=== PATIENT | female | born 1945 | race Caucasian/White ===

== ENCOUNTER → 2016-12-13 | Outpatient (CLI) | payer OTHER ==
--- NOTE | 2016-12-13 17:37 | MA ---
Screening Digital Mammogram with Digital Breast Tomosynthesis Clinical Indications: Routine screening. Technique: Standard cephalocaudal projections are obtained. Digital breast tomosynthesis was perform ed in the MLO projection with reconstruction at 1.0 mm slice thickness and composite MLO views recons tructed. This examination is processed by the CAD computer aided detection system. Comparison: December 04, 2015; November 25, 2014; and studies dating back to August 24, 2008. Breast density: C; The breasts are heterogeneously dense, which may obscure small masses. Findings: CAD was reviewed. There are no new masses, new clusters of microcalcifications, or significant axillary lymphadenopathy . Impression: Negative mammogram. BI-RADS 1. Recommendation: Routine screening mammogram is recommended in one year. Dense mammographic pattern limits the sensitivity of mammography in this patient. If there is a clini romeo palpable abnormality, recommend additional imaging with ultrasound if clinically indicated. [facility] will send a result letter to the patient. Negative mammography should not preclude additional workup of a clinically suspicious finding. The patient's information is entered into a reminder system with a target due date for her next mammo gram.
== END ==
LOC: FIMAGING 13:49
DX: Z12.31 Encounter for screening mammogram for malignant neoplasm of breast (principal)
CPT/HCPCS: G0202

== ENCOUNTER → 2017-04-07 | Outpatient (CLI) | payer OTHER | LOC: FIMAGING 18:36 | PROVIDERS: ATTEND Family Medicine | DX: S42.021A Displaced fracture of shaft of right clavicle, initial encounter for closed fracture (principal) ==

== ENCOUNTER → 2017-04-11 | Outpatient (CLI) | payer OTHER | LOC: BRMIMAGING 08:34 | PROVIDERS: ATTEND Family Medicine | DX: Z13.820 Encounter for screening for osteoporosis (principal); M85.80 Other specified disorders of bone density and structure, unspecified site ==

== ENCOUNTER → 2017-12-22 | Outpatient (CLI) | payer OTHER | LOC: FIMAGING 08:17 | PROVIDERS: ATTEND Family Medicine | DX: Z12.31 Encounter for screening mammogram for malignant neoplasm of breast (principal) ==

== ENCOUNTER → 2018-08-06 | Outpatient (CLI) | payer OTHER ==
[~2018-08-06] MED LIST: IOPAMIDOL (ISOVUE-300) 100 ML BTL ONE
== END ==
LOC: FIMAGING 11:52
PROVIDERS: ATTEND Family Medicine
DX: R93.5 Abnormal findings on diagnostic imaging of other abdominal regions, including retroperitoneum (principal); R74.0 Nonspecific elevation of levels of transaminase and lactic acid dehydrogenase [LDH]; G96.19 Other disorders of meninges, not elsewhere classified; Z80.0 Family history of malignant neoplasm of digestive organs
CPT/HCPCS: 74177; Q9967

== ENCOUNTER → 2018-08-06 | Outpatient (CLI) | payer OTHER | LOC: FIMAGING 09:31 | PROVIDERS: ATTEND Family Medicine | DX: R10.11 Right upper quadrant pain (principal); R94.5 Abnormal results of liver function studies; R93.5 Abnormal findings on diagnostic imaging of other abdominal regions, including retroperitoneum; K82.9 Disease of gallbladder, unspecified ==

== ENCOUNTER 2018-08-10 13:29 | Day surgery (SDC) | payer OTHER ==
[2018-08-10] MEDS ORDERED: LR 1,000 ML IV ONE (13:55)
[2018-08-10] MEDS ORDERED: LIDOCAINE 1% 2 ML INJ ID PRN (13:55)
[2018-08-10] MEDS ORDERED: IOTHALAMATE MEG (CONRAY) 50 ML VIAL IV ONE (15:03)
[2018-08-10] MEDS ORDERED: GLUCAGON HCL 1 MG VIAL ONE (15:03)
[2018-08-10] MEDS ORDERED: INDOMETHACIN 50 MG SUPP PR PRN (15:16)
[2018-08-10] MEDS ORDERED: fentaNYL 100 MCG/2 ML INJ ONE (15:16)
[2018-08-10] MEDS ORDERED: PROPOFOL 200 MG/20 ML VIAL ONE (15:16)
--- NOTE | 2018-08-10 15:16 | PDGENHP ---
History & Physical Chief Complaint: abnl imaging History of Present Illness: 73 year old presents for abnl imaging. 4cm panc mass. + RUQ abdominal pain. Increased LFTs Pertinent Past, Social, Family History: See anesthesiology notes for details. Relevant Physical Exam: HEENT: anicteric. Cv: RRR +s1s2. Lungs: CTAB. Abd: soft, nt, + BS Cardiorespiratory Assessment: ASA 2
[2018-08-10] MEDS ORDERED: DEXAMETHASONE 4 MG/ML VIAL ONE (15:17)
[2018-08-10] MEDS ORDERED: SUCCINYLCHOLINE CHLORIDE 200 MG/10 ML SYR IVP ONE (15:17)
[2018-08-10] MEDS ORDERED: ROCURONIUM 50 MG/5 ML VIAL ONE (15:17)
[2018-08-10] MEDS ORDERED: LIDOCAINE 2% 2 ML INJ ONE ×3 (15:18→15:19)
--- NOTE | 2018-08-10 15:20 | PDANEPAE ---
ANE History of Present Illness ercp ANE Past Medical History - Cardiovascular History Hx Hypertension: No Hx Arrhythmias: No Hx Chest Pain: No Hx Coronary Artery / Peripheral Vascular Disease: No Hx CHF / Valvular Disease: No Hx Palpitations: No - Pulmonary History Hx COPD: No Hx Asthma/Reactive Airway Disease: Yes Hx Recent Upper Respiratory Infection: No Hx Oxygen in Use at Home: No Hx Sleep Apnea: No Pulmonary History Comment: exercise induced asthma uses inhaler 4-5 times a week preventatively - Neurologic History Hx Cerebrovascular Accident: No Hx Seizures: No Hx Dementia: No - Endocrine History Hx Diabetes: No - Renal History Hx Renal Disorders: No - Liver History Hx Hepatic Disorders: Yes Hepatic History Comment: elevated LFT's. mass on pancreas - Neurological & Psychiatric Hx Hx Neurological and Psychiatric Disorders: Yes Neurological / Psychiatric History Comment: depression - Cancer History Hx Cancer: Yes Cancer History Comment: basal sites on upper lip and back - Congenital Disorder History Hx Congenital Disorders: No - GI History Hx Gastrointestinal Disorders: Yes - Surgical History Prior Surgeries: right wrist pinned and plated 2009. breast cysts removed. cystic ovaries removed ANE Review of Systems Review of Systems: - Exercise capacity METS (RN): 4 METS ANE Patient History - Allergies Allergies/Adverse Reactions: estrogens, conjugated [From Premarin] Allergy (Verified 08/10/18 14:19) - Home Medications Home medications: home medication list seen and reviewed Home Medications: Aspirin 81mg (*) 08/10/18 [Last Taken 08/06/18] Prozac 20 MG (*) 08/10/18 [Last Taken 08/07/18] Vit D3-Vit K/Berberine/Hops 08/10/18 [Last Taken 08/07/18] - Anes Hx Anes Hx: no prior problems - Smoking Hx Smoking Status: Never smoked - Family Anes Hx Family Hx Anesthesia Complications: none ANE Labs/Vital Signs - Vital Signs Height: 175.26 cm Weight: 63.503 kg ANE Physical Exam - Airway Mallampati Score: Class 2 Mouth exam: normal dental/mouth exam - Pulmonary Pulmonary: no respiratory distress - Cardiovascular Cardiovascular: regular rate and rhythym - ASA Status ASA Status: II ANE Anesthesia Plan Anesthesia Plan: general endotracheal anesthesia
[2018-08-10] MEDS ORDERED: NS 500 ML IV SCH (15:30)
[2018-08-10] MEDS ORDERED: SUGAMMADEX SODIUM 200 MG/2 ML VIAL IVP ONE (16:26)
[2018-08-10] MEDS ORDERED: ONDANSETRON 4 MG/2 ML VIAL ONE (16:27)
--- NOTE | 2018-08-10 16:46 | GIREPORT ---
[facility] Surgical Services - Endoscopy Department Patient Name: Dona Santamaria Procedure Date: 08/10/2018 3:25 PM Patient Type: Outpatient Attending MD/ ER Physician: Raymond Clay MD Procedure: Upper EUS Indications: Common bile duct dilation (acquired) seen on CT scan, Suspected mass in pancreas on CT scan, Elevated liver enzymes, Abdominal pain in the righ t upper quadrant, Weight loss Patient Profile: 73 year old female presents for evaluation of RUQ abdominal pain, eleva carlos LFTs, as well as abnormal imaing ( with CBD dilation and possible pancr eatic mass) Providers: Raymond Clay MD Medicines: General Anesthesia Complications: No immediate complications. Estimated blood loss: Minimal. Description of Procedure: After obtaining informed consent, the endoscope was passed under direct vision. Throughout the procedure, the patient's blood pressure, pulse, and oxygen saturations were monitored continuously.The upper EUS was accomplished without difficulty. The patient tolerated the procedure we ll. The Endosonoscope was introduced through the mouth, and advanced to the second part of duodenum. The esophagus, stomach, and duodenum were visualized endosonographically. The Endoscope was introduced through th e mouth, and advanced to the second part of duodenum. Findings: Endoscopic Finding : The examined esophagus was normal. A small hiatal hernia was present. Patchy mildly erythematous mucosa was found in the gastric body and in the gastric antrum. Biopsies were taken with a cold forceps for histology. Nodular mucosa was found ath the junction of the duodenal bulb/second portion. Biopsies were taken with a cold forceps for histology. Endosonographic Finding : An irregular mass was identified in the pancreatic head. The mass was hypoechoic. The mass measured 40 mm by 33 mm in maximal cross-sectional diameter. The endosonographic borders were poorly-defined. There was sonographic evidence suggesting invasion into the superior mesenteric v ein (manifested by encasement). An intact interface was seen between the ma ss and the adjacent structures suggesting a lack of invasion. The remainde r of the pancreas was examined. The endosonographic appearance of parenchyma and the upstream pancreatic duct indicated no duct dilation and parenchymal atrophy. Fine needle aspiration for cytology was performed. Color Doppl er imaging was utilized prior to needle puncture to confirm a lack of significant vascular structures within the needle path. Two passes were made with the 25 gauge needle using a transduodenal approach. A stylet was u sed. A retail specialist was present and performed a preliminary cytologic examinat ion. The cellularity of the specimen was adequate. Pancreatic parenchymal abnormalities were noted in the entire pancreas. These consisted of hyperechoic foci. The pancreatic duct had a prominently branched endosonographic appearan ce and had hyperechoic mcmillan in the entire pancreas. There was no sign of significant endosonographic abnormality in the visualized portion of the liver. No masses were identified. There was dilation in the common bile duct and in the gallbladder which measured up to 15 mm. No lymphadenopathy seen. Estimated Blood Loss: Estimated blood loss was minimal. Post Op Diagnosis: - Normal esophagus. - Small hiatal hernia. - Erythematous mucosa in the gastric body and antrum. Biopsied. - Nodular mucosa at the junction of the duodenal bulb/second portion. Biopsied. - A mass was identified in the pancreatic head. Fine needle aspiration performed. - Pancreatic parenchymal abnormalities consisting of hyperechoic foci w ere noted in the entire pancreas. - The pancreatic duct had a prominently branched endosonographic appear ance and had hyperechoic mcmillan in the entire pancreas. - There was no evidence of significant pathology in the visualized port ion of the liver. - There was dilation in the common bile duct and in the gallbladder whi ch measured up to 15 mm (CBD). The gallbladder was distended with debris. Recommendation: - Discharge patient to home (with escort). - Clear liquid diet. - Continue present medications. - Await cytology results and await path results. - Follow up with oncology and surgery - Thank you for allowing me to participate in the care of your patient. Attending Participation: I personally performed the entire procedure. Raymond Clay MD Raymond Clay MD 08/10/2018 4:45:20 PM This report has been signed electronicallyRaymond Clay MD Number of Addenda: 0 Note Initiated On: 08/10/2018 3:25 PM [email or web address]}
[2018-08-10] MEDS ORDERED: LR 500 ML IV PRN (16:51)
[2018-08-10] MEDS ORDERED: ALBUTEROL 3 ML DEYVIAL IH PRN (16:51)
[2018-08-10] MEDS ORDERED: NALOXONE HCL 0.4 MG/ML INJ IVP PRN (16:51)
[2018-08-10] MEDS ORDERED: fentaNYL 100 MCG/2 ML INJ IVP PRN (16:51)
[2018-08-10] MEDS ORDERED: ONDANSETRON 4 MG/2 ML VIAL IVP PRN (16:51)
--- NOTE | 2018-08-10 16:52 | POSTANESTH ---
Post Anesthetic Evaluation Cardiovascular Status: Normal, Stable Respiratory Status: Normal, Stable Level of Consciousness/Mental Status: Can Participate in Eval Pain Control: Adequate, Prn Tx Ordered Nausea/Vomiting Control: Adequate, Prn Tx Ordered Complications Possibly Related to Anesthesia: None Noted
--- NOTE | 2018-08-10 16:55 | GIREPORT ---
[facility] Surgical Services - Endoscopy Department Patient Name: Dona Santamaria Procedure Date: 08/10/2018 3:43 PM Patient Type: Outpatient Attending MD/ ER Physician: Raymond Clay MD Procedure: ERCP Indications: Abnormal abdominal CT, Biliary dilation on Computed Tomogram Scan Patient Profile: 73 year old female presents for evaluation of abnormal LFTs, abnormal imaging, and biliary decompression. He had a recent EUS which revealed a high grade obstruction of the distal CBD secondary to a pancreatic mass . Providers: Raymond Clay MD Medicines: General Anesthesia, Indomethacin 100 mg [place] Complications: No immediate complications. Estimated blood loss: Minimal. Description of Procedure: After obtaining informed consent, the scope was passed under direct vis ion. Throughout the procedure, the patient's blood pressure, pulse, and oxyg en saturations were monitored continuously. The Duodenalscope was introduc ed through the mouth, and advanced to the duodenum and used to inject cont rast into the bile duct. The ERCP was accomplished without difficulty. The patient tolerated the procedure well. Findings: The finished goods stock clerk film was normal. The esophagus was successfully intubated und er direct vision. The scope was advanced to a normal major papilla in the descending duodenum without detailed examination of the pharynx, larynx and associated structures, and upper GI tract. The upper GI tract was gross ly normal. A wire was initially passed into the pancreatic duct and the wi re was kept in place. A wire was then passed into the biliary tree using t he double wire technique. The short-nosed traction sphincterotome was pass ed over the guidewire and the bile duct was then deeply cannulated. Contra st was injected. I personally interpreted the bile duct images. Ductal deisi w of contrast was adequate. Image quality was adequate. Contrast extended to the entire biliary tree. The lower third of the main bile duct contained a single localized stenosis 15 mm in length. The CBD was dilated to 15mm. A 10 mm biliary sphincterotomy was made with a traction (standard) sphincter otome using pure cut current. The sphincterotomy oozed blood. The biliary hua e was swept with a 12 mm balloon starting at the bifurcation. Debris was swep t from the duct. One 10 mm by 4 cm covered metal stent was placed into th e common bile duct with the proximal stent proximal to the stricture. Approximately 1cm was emanating from the ampulla. Bile flowed through t he stent. The stent was in good position. Estimated Blood Loss: Estimated blood loss was minimal. Post Op Diagnosis: - A single localized biliary stricture was found in the lower third of the main bile duct. The stricture was malignant appearing. - A biliary sphincterotomy was performed. - The biliary tree was swept and debris was found. - One covered metal stent was placed into the common bile duct. Recommendation: - Discharge patient to home (with escort). - Clear liquid diet. - Continue present medications. - Follow up with oncology and surgery. - Thank you for allowing me to participate in the care of your patient. Attending Participation: I personally performed the entire procedure. Raymond Clay MD Raymond Clay MD 08/10/2018 4:54:38 PM This report has been signed electronicallyRaymond Clay MD Number of Addenda: 0 Note Initiated On: 08/10/2018 3:43 PM [email or web address]
[2018-08-10 18:01] VITALS: BP 130/76
== END 2018-08-10 18:08 | disposition home or self-care (01) ==
LOC: FSGY 13:29
PROVIDERS: ATTEND Internal Medicine Gastroenterology
PROC: 0DB98ZX Excision of Duodenum, Via Natural or Artificial Opening Endoscopic, Diagnostic (ICD-10-PCS; principal; 2018-08-10 15:15)
PROC: 0F798DZ Dilation of Common Bile Duct with Intraluminal Device, Via Natural or Artificial Opening Endoscopic (ICD-10-PCS; principal; 2018-08-10 15:15)
PROC: 0FBG3ZX Excision of Pancreas, Percutaneous Approach, Diagnostic (ICD-10-PCS; principal; 2018-08-10 15:15)
PROC: 0DB78ZX Excision of Stomach, Pylorus, Via Natural or Artificial Opening Endoscopic, Diagnostic (ICD-10-PCS; principal; 2018-08-10 15:15)
DX: C25.0 Malignant neoplasm of head of pancreas (principal); J45.990 Exercise induced bronchospasm
CPT/HCPCS: 43238; 43239; 43274; 76001; C1769; C1874; J0330; J1100; J1610; J2405; J2704; J3010; Q9961

== ENCOUNTER → 2018-08-17 | Outpatient (CLI) | payer OTHER | LOC: FIMAGING 17:34 | PROVIDERS: ATTEND Internal Medicine Hematology & Oncology | DX: R91.1 Solitary pulmonary nodule (principal); C25.0 Malignant neoplasm of head of pancreas | CPT/HCPCS: 71260; Q9967 ==

== ENCOUNTER 2018-08-27 05:44 | Day surgery (SDC) | payer OTHER ==
[2018-08-27] MEDS ORDERED: LR 1,000 ML IV ONE (05:56)
[2018-08-27] MEDS ORDERED: ceFAZolin 2 GM/DEXTROSE 100 ML IV ONE (06:32)
--- NOTE | 2018-08-27 06:33 | PDHPUP ---
History & Physical Update H&P update statement: This history and physical update is based on an assessment of the patient which was completed after admission or registration (within 24 hours), but prior to the surgery/procedure. H&P update: H&P reviewed & patient examined, no change in patient's condition since H&P completed
[2018-08-27] MEDS ORDERED: BUPIVACAINE 0.25% 30 ML SDV ONE (06:46)
[2018-08-27] MEDS ORDERED: EPINEPHrine 1 MG/ML INJ ONE (06:47)
--- NOTE | 2018-08-27 07:00 | PDANEPAE ---
ANE History of Present Illness pancreatic cancer here for chemoport ANE Past Medical History - Cardiovascular History Hx Hypertension: No Hx Arrhythmias: No Hx Chest Pain: No Hx Coronary Artery / Peripheral Vascular Disease: No Hx CHF / Valvular Disease: No Hx Palpitations: No - Pulmonary History Hx COPD: No Hx Asthma/Reactive Airway Disease: Yes Hx Recent Upper Respiratory Infection: No Hx Oxygen in Use at Home: No Hx Sleep Apnea: No Sleep Apnea Screening Result - Last Documented: Negative Pulmonary History Comment: exercise induced asthma uses inhaler 4-5 times a week preventatively, states well controlled - Neurologic History Hx Cerebrovascular Accident: No Hx Seizures: No Hx Dementia: No - Endocrine History Hx Diabetes: No - Renal History Hx Renal Disorders: No Renal History Comment: elevated LFT's. mass on pancreas - Liver History Hx Hepatic Disorders: Yes Hepatic History Comment: elevated LFT's. mass on pancreas. stent in bile duct - Neurological & Psychiatric Hx Hx Neurological and Psychiatric Disorders: Yes Neurological / Psychiatric History Comment: depression - Cancer History Hx Cancer: Yes Cancer History Comment: basal cell sites removed on upper lip and back. panceratic CA - Congenital Disorder History Hx Congenital Disorders: No - GI History Hx Gastrointestinal Disorders: Yes Gastrointestinal History Comment: Reflux - Other Health History Other Health History: wears glasses. partial plate, lower. recent back pain - Chronic Pain History Chronic Pain: No - Surgical History Prior Surgeries: EGD, ERCP, 2018. right wrist pinned and plated 2009. breast cysts removed. cystic ovaries removed ANE Review of Systems Review of Systems: - Exercise capacity METS (RN): 4 METS ANE Patient History - Allergies Allergies/Adverse Reactions: estrogens, conjugated [From Premarin] Allergy (Verified 08/10/18 14:19) - Home Medications Home Medications: Aspirin 81mg (*) 08/10/18 [Last Taken 08/13/18] Prozac 20 MG (*) 08/10/18 [Last Taken 08/26/18] Vit D3-Vit K/Berberine/Hops 08/10/18 [Last Taken 08/26/18] Albuterol 08/26/18 [Last Taken 08/27/18] Ibuprofen 08/26/18 [Last Taken Unknown] Omeprazole 08/26/18 [Last Taken 08/17/18] - NPO status NPO Status: no food or drink >8 hours NPO Since - Liquids (Date): 08/27/18 NPO Since - Liquids (Time): 05:30 NPO Since - Solids (Date): 08/26/18 NPO Since - Solids (Time): 19:00 - Anes Hx Anes Hx: no prior problems - Smoking Hx Smoking Status: Never smoked - Alcohol Use Alcohol Use: Occasionally - Family Anes Hx Family Anes Hx: none Family Hx Anesthesia Complications: none ANE Labs/Vital Signs - Vital Signs Blood Pressure: 106/63 Heart Rate: 59 Respiratory Rate: 16 O2 Sat (%): 96 Height: 175.26 cm Weight: 65.317 kg ANE Physical Exam - Airway Neck exam: FROM Mallampati Score: Class 2 Mouth exam: normal dental/mouth exam - Pulmonary Pulmonary: no respiratory distress, clear to auscultation - Cardiovascular Cardiovascular: regular rate and rhythym, no murmur, rub, or gallop - ASA Status ASA Status: III ANE Anesthesia Plan Anesthesia Plan: GA w LMA
[2018-08-27] MEDS ORDERED: fentaNYL 100 MCG/2 ML INJ ONE (07:11)
[2018-08-27] MEDS ORDERED: PROPOFOL 200 MG/20 ML VIAL ONE (07:11)
[2018-08-27] MEDS ORDERED: LIDOCAINE 2% 100 MG/5 ML SYR ONE (07:12)
--- NOTE | 2018-08-27 08:00 | POSTOPPROG ---
Post Op Note Date of Operation: 08/27/18 Surgeon: Reji Palmer Anesthesiologist: Germaine Anesthesia: GET(General Endotracheal) Pre-op Diagnosis: pancreatic cancer Post-op Diagnosis: same Procedure: US guided port placement c intraop fluoro Findings: L IJ Inf/Abcess present in the surg proc area at time of surgery?: No EBL: Minimal
[2018-08-27] MEDS ORDERED: NALOXONE HCL 0.4 MG/ML INJ IVP PRN (08:02)
[2018-08-27] MEDS ORDERED: ACETAMINOPHEN 500 MG TAB PO PRN (08:02)
[2018-08-27] MEDS ORDERED: HYDROCODONE/APAP 5/325 TAB PO PRN (08:02)
[2018-08-27] MEDS ORDERED: ONDANSETRON 4 MG/2 ML VIAL IVP PRN (08:02)
[2018-08-27] MEDS ORDERED: oxyCODONE IR 5 MG TAB PO PRN (08:02)
[2018-08-27] MEDS ORDERED: fentaNYL 100 MCG/2 ML INJ IVP PRN (08:02)
[2018-08-27] MEDS ORDERED: PROMETHAZINE HCL 25 MG/ML INJ IVP PRN (08:02)
--- NOTE | 2018-08-27 08:03 | POSTANESTH ---
Post Anesthetic Evaluation Cardiovascular Status: Normal, Stable, Similar to Pre-Op Cond Respiratory Status: Normal, Stable, Similar to Pre-op Cond. Level of Consciousness/Mental Status: Can Participate in Eval, Alert and Oriented Pain Control: Adequate, Prn Tx Ordered Nausea/Vomiting Control: Adequate, Prn Tx Ordered Complications Possibly Related to Anesthesia: None Noted
--- NOTE | 2018-08-27 09:02 | GOP ---
DATE OF OPERATION: 08/27/2018 SURGEON: Reji Palmer MD ANESTHESIA: General endotracheal. ANESTHESIOLOGIST: Dr. Herron PREOPERATIVE DIAGNOSIS: Pancreatic cancer. POSTOPERATIVE DIAGNOSIS: Pancreatic cancer. PROCEDURE PERFORMED: Ultrasound-guided left internal jugular port placement with intraoperative fluo roscopy. FINDINGS: Successful cannulation and placement of PowerPort into the left internal jugular vein. Th e port both flushed and withdrew appropriately. SPECIMENS: None. ESTIMATED BLOOD LOSS: 5 cc. DESCRIPTION OF PROCEDURE: The patient was greeted in the preoperative suite. Once again, risks, rudy efits, and alternatives were discussed. Consent was signed. She was then brought back to the operat rose suite, placed on the OR table in supine position. After all anesthesia machines, including SCDs were on and functioning, [employer] time-out was performed. After successful inductio n of general anesthesia, the patient's left neck was prepped and draped in the typical sterile fashio n. I identified the left internal jugular vein using the ultrasound. Using 1 stick, I successfully radha ulated the vein and threaded my guidewire. Fluoroscopic guidance showed that it was in the superior vena cava over which the peel-away dilator sheath was then placed. I then created a pocket approxima tely 2 finger breaths below the clavicle on the ipsilateral side. Once the pocket was successfully p laced, I had tunneled the catheter from the pocket to the stick site and successfully threaded it thr ough the peel-away sheath. Using fluoroscopic guidance successfully sized to the atrial caval juncti on. It was then attached to the port proper. It both withdrew and flushed appropriately. It was he neeraj locked. It was placed within the pocket and successfully attached to the underlying chest wall with an interrupted Prolene suture. The incision was then closed in layers, first 3-0 Vicryl, then 4 Monocryl over which Dermabond was placed. The patient was then extubated in the operative suite an d taken to the PACU in satisfactory condition. DRAINS: None. COUNTS: All counts were reported as correct x2. /[id number]/MODL
[2018-08-27 09:58] VITALS: BP 108/61
== END 2018-08-27 09:50 | disposition home or self-care (01) ==
LOC: FSGY 05:44
PROVIDERS: ATTEND Surgery
DX: C25.0 Malignant neoplasm of head of pancreas (principal)
CPT/HCPCS: C1788; J0171; J0690; J1642; J2001; J2704; J3010

== ENCOUNTER → 2018-11-19 | Outpatient (CLI) | payer OTHER ==
[~2018-11-19] MED LIST changes: +GADOBUTROL 10 ML VIAL IVP ONE; -IOPAMIDOL (ISOVUE-300) 100 ML BTL ONE
== END | disposition home or self-care (01) ==
LOC: FIMAGING 09:06
PROVIDERS: ATTEND Internal Medicine Hematology & Oncology
DX: C25.0 Malignant neoplasm of head of pancreas (principal); K76.89 Other specified diseases of liver; N28.1 Cyst of kidney, acquired; K83.8 Other specified diseases of biliary tract
CPT/HCPCS: 74183; A9585

== ENCOUNTER → 2019-01-01 | Outpatient (CLI) | payer OTHER | LOC: FIMAGING 07:36 | PROVIDERS: ATTEND Family Medicine | DX: Z12.31 Encounter for screening mammogram for malignant neoplasm of breast (principal) ==

== ENCOUNTER → 2019-01-15 | Outpatient (CLI) | payer OTHER ==
[~2019-01-15] MED LIST changes: +GADOXETATE DISODIUM 2.5 MMOL/10 ML VIAL IV ONE
== END ==
LOC: FIMAGING 08:00
PROVIDERS: ATTEND Internal Medicine Hematology & Oncology
DX: C25.0 Malignant neoplasm of head of pancreas (principal)
CPT/HCPCS: 74183; A9581; A9585

== ENCOUNTER → 2019-04-09 | Outpatient (CLI) | payer OTHER | LOC: EMCIMAGING 07:44 | PROVIDERS: ATTEND Internal Medicine Hematology & Oncology | DX: C25.0 Malignant neoplasm of head of pancreas (principal) | CPT/HCPCS: 74183-PN ==

== ENCOUNTER → 2019-05-03 | Outpatient (CLI) | payer OTHER | LOC: FIMAGING 12:39 ==